=== PATIENT | female | born 1995 | race Caucasian/White ===

== ENCOUNTER 2018-09-25 06:41 | Emergency (ER) | payer BC, MEDICAID ==
[~2018-09-25] VITALS: Ht 157.5 cm; Wt 71.3 kg
[~2018-09-25 06:41] MED LIST: CETI-102 PO; DIPH-423 PO; HYDR-4383 PO; IBUP-1984 PO; NO HOME MEDS; ZOF4T PO
[2018-09-25] MEDS ORDERED: LIDOcaine 1% w/epiNEPHrine 1:200,000 30ml vial IM ONE (07:10)
[2018-09-25 07:15] VITALS: BP 115/57
[2018-09-25] MEDS ORDERED: BACDS PO (07:58)
== END 2018-09-25 08:14 | disposition home or self-care (01) ==
LOC: ER 06:42
DX: L02.31 Cutaneous abscess of buttock (principal); Z79.899 Other long term (current) drug therapy
CPT/HCPCS: 10060; 99283; J3490

== ENCOUNTER 2019-02-10 08:30 | Emergency (ER) | payer BC, MEDICAID ==
[~2019-02-10] VITALS: Ht 157.5 cm; Wt 70.5 kg
[2019-02-10] MEDS ORDERED: metoclopramide 5 mg/ml inj IM ONE ×2 (08:55)
[2019-02-10 09:06] LABS: BASOPHILS # (AUTO) 0.1 X10'3 (0-0.2); BASOPHILS % (AUTO) 0.5 % (0-1); EOSINOPHILS % (AUTO) 0 % (0-6); HEMATOCRIT 41.1 % (35.0-45.0); HEMOGLOBIN 13.8 g/dl (12.0-16.0); LYMPHOCYTES # (AUTO) 0.7 X10'3 (1.1-4.8); LYMPHOCYTES % (AUTO) 5.8 % (21-51); MEAN CORPUSCULAR HEMOGLOBIN 28.5 PG (27.0-31.0); MEAN CORPUSCULAR HGB CONC 33.6 g/dL (33.0-36.5); MONOCYTES # (AUTO) 0.2 X10'3 (0-0.9); MONOCYTES % (AUTO) 1.7 % (2-12); NEUTROPHILS # (AUTO) 10.4 X10'3 (1.8-7.7); PLATELET COUNT 430 X10'3 (140-440); RED BLOOD COUNT 4.83 X10'6 (4.20-5.60); RED CELL DISTRIBUTION WIDTH 13.8 % (11.5-14.5); WHITE BLOOD COUNT 11.4 X10'3 (4.5-11.0)
[2019-02-10 09:21] LABS: ALANINE AMINOTRANSFERASE 61 U/L (12-78); ALBUMIN 4.6 G/DL (3.4-5.0); ALBUMIN/GLOBULIN RATIO 1.1 (1.1-1.5); ALKALINE PHOSPHATASE 63 IU/L (46-116); ANION GAP 12 (8-16); ASPARTATE AMINO TRANSFERASE 20 U/L (10-37); BILIRUBIN,TOTAL 0.6 MG/DL (0.1-1.0); BLOOD UREA NITROGEN 10 MG/DL (7-18); BUN/CREATININE RATIO 14.3 (6.6-38.0); CALCIUM 9.8 MG/DL (8.5-10.1); CHLORIDE 106 MMOL/L (99-107); GLUCOSE 123 MG/DL (70-104); POTASSIUM 4.1 MMOL/L (3.5-5.1); SODIUM 140 MMOL/L (135-145); TOTAL CARBON DIOXIDE 22.2 MMOL/L (24-32); TOTAL PROTEIN 8.7 G/DL (6.4-8.2); eGFR > 90 ML/MIN
[2019-02-10 09:45] LABS: BETA HCG,QUANTITATIVE 30719 mIU/ml
[2019-02-10] MEDS ORDERED: normal saline 1000ml 1,000 ML IV ONE (09:50)
[2019-02-10] MEDS ORDERED: ondansetron/PF 4mg/2ml inj IV ONE ×2 (10:15→11:55)
[2019-02-10 10:47] LABS: URINE HCG POSITIVE (NEG)
[2019-02-10 10:56] LABS: CLARITY,URINE CLOUDY (Clear); GLUCOSE, URINE NEGATIVE (Neg); KETONES,URINE >=80 mg/dl (Neg); LEUKOCYTE ESTERASE ,URINE NEGATIVE (Neg); NITRITES, URINE NEGATIVE (Neg); OCCULT BLOOD,URINE TRACE-LYSED (Neg); PROTEIN,URINE 30 mg/dl (Neg); UROBILINOGEN,URINE 0.2 E.U/dL (0.2-1.0)
[2019-02-10 10:57] LABS: COLOR,URINE DARK YELLOW (Yellow); UA COLLECTION TYPE CLN CATCH MIDSTREAM
[2019-02-10 10:59] LABS: AMORPHOUS URATES 1+; BACTERIA,URINE FEW /HPF (Neg); MUCUS STRANDS MANY /LPF (Neg); RBC,URINE 0-2 /HPF (0-2); SQUAMOUS EPITHELIAL CELL,UR MODERATE /LPF (FEW); WBC,URINE 0-4 /HPF (0-4)
[2019-02-10] MEDS ORDERED: normal saline 1000ML IV soln IVB ONE (11:35)
[2019-02-10] MEDS ORDERED: ONDA4TAB6 PO (13:05)
[2019-02-10 13:13] VITALS: BP 131/70
== END 2019-02-10 13:16 | disposition home or self-care (01) ==
LOC: ER 08:30
DX: O21.9 Vomiting of pregnancy, unspecified (principal); Z79.899 Other long term (current) drug therapy; Z3A.01 Less than 8 weeks gestation of pregnancy
CPT/HCPCS: 36415; 76700; 80053; 81001; 81025; 84702; 85025; 85610; 96361; 96372; 96374; 96376; 99284; J2405; J2765; J7030

== ENCOUNTER 2024-12-27 06:39 | Emergency (ER) | payer BC, MEDICAID ==
[~2024-12-27] VITALS: Ht 157.5 cm; Wt 56.7 kg
[~2024-12-27 06:39] MED LIST changes: -CETI-102 PO; +CETI-90 PO; +ONDA4TAB6 PO
[2024-12-27 06:45] VITALS: BP 130/86; PULSE 109; RESP 18; O2SAT 100
--- NOTE | 2024-12-27 07:17 | RADIOLOGY REPORT ---
Procedure: DI TIB/FIB 2 VWS 12/27/2024 06:54 AM TECHNIQUE: DI TIB/FIB 2 VWS Indication: RIGHT LEG PAIN Comparison: None FINDINGS: Bones: No acute fracture or dislocation. Joint spaces are maintained. Soft tissues: Unremarkable. No radiopaque foreign body. IMPRESSION: 1. No acute osseous abnormality.
--- NOTE | 2024-12-27 09:08 | Physician Documentation ---
History of Present Illness ~ Chief Complaint: Bite-animal Stated Complaint: DOG BITE Time Seen by MD: 08:57 [facility] H[facility] This is a 29-year-old female who presents with multiple dog bites to bilateral arms and right bourne, patient reports he was breaking up a fight between two dogs when she was bit by both of them. Patient reports unknown last tetanus booster. Patient reports both dogs up-to-date on vaccinations. Patient reports that she cleaned wounds after incident. Tetanus within 5 years?: Yes Medication Reconciliation Allergies: Coded Allergies: No Known Allergies (Unverified , 12/27/24) Scheduled Amox Tr/Potassium Clavulanate 875/125 MG (Augmentin 875/125 MG), 1 TAB PO BID Cetirizine HCl (Zyrtec), 1 TAB PO DAILY Diphenhydramine Hcl (Benadryl), 25 MG PO TID Ibuprofen* (Motrin*), 400 MG PO Q6H, (Reported) Scheduled PRN Hydrocodone/Acetaminophen ([place] 5-325 Tablet), 1 TABLET PO TID PRN for pain Ondansetron Hcl (Zofran), 1 TAB PO Q6H PRN for nausea/vomiting Ondansetron ODT* (Zofran ODT*), 4 MG PO Q6H PRN for nausea/vomiting Miscellaneous Medications Home Med List (No Home Medications), (Reported) Past Medical History Past Medical History: No Pertinent History, Extremity Fracture Past Surgical History: no surgical history Smoking Status: Never smoker Alcohol Use: None Drug Use: none Lives with: Mother Lives In: Home Occupation: employed, student Review of Systems ROS Dog bites as stated above in the HPI, otherwise all systems are reviewed and negative. Physical Exam Vital Signs: Temperature: 99.1, Source: Temporal, Heart Rate: 109, Respiratory Rate: 18, BP: 130/86, Pulse Oximetry: 100, Weight: 56.700 Oxygen Flow Rate: 0 Physical Exam VITALS: Reviewed and as above. GENERAL: Alert, nontoxic appearing, no apparent distress. RESPIRATORY: No increased work of breathing, no respiratory distress, speaking in full clear sentences SKIN: Skin of bilateral forearms multiple superficial abrasions and superficial puncture wounds, skin of right calf multiple abrasions, skin of right anterior bourne single superficial puncture wound Progress Results/Orders Results/Orders Completed Orders - MARTÍN,KWADWO W NURSING STAFFING COORDINATOR Tetanus/Pertuss/Diph Acell/Pf (Boostrix (12/27/24 09:10) Ibuprofen Tablet (Motrin Tablet) (12/27/24 09:10) Amox Tr/Potassium Clavulanate (Augmentin (12/27/24 09:15) Vital Signs 12/27/24 12/27/24 06:45 09:35 Temp 99.1 99.1 Pulse 109 Resp 18 B/P (MAP) 130/86 Pulse Ox 100 O2 Flow Rate 0 EKG/XRAY/CT/US/VASC/MRI Bone/Soft Tissue X-Ray (Ext.) : Additional Comment Procedure: DI TIB/FIB 2 VWS 12/27/2024 06:54 AM TECHNIQUE: DI TIB/FIB 2 VWS Indication: RIGHT LEG PAIN Comparison: None FINDINGS: Bones: No acute fracture or dislocation. Joint spaces are maintained. Soft tissues: Unremarkable. No radiopaque foreign body. IMPRESSION: 1. No acute osseous abnormality. Electronically Signed by:JOANNE MATTHEWS MD Date & Time: 12/27/24714 Dictated by: JOANNE MATTHEWS MD Dictation date and time: 12/27/24714 I have reviewed and agree with the radiology report. I have reviewed and interpreted the imaging as: No fracture or dislocation, no radiopaque foreign body Medical Decision Making Findings This 29-year-old female presented with multiple dog bites to her arms and right leg, all bites appear to be superficial, x-ray of right leg did not demonstrate evidence of fracture or dislocation and no retained foreign body. Inspection of the wounds did not demonstrate evidence of retained foreign body. Both dogs involved in the incident for fully vaccinated and known to the patient there for rabies prophylaxis not indicated. Remainder of physical exam was benign. All wounds were thoroughly irrigated prior to arrival. Patient placed on course of oral antibiotics. Patient appropriate for outpatient follow up. Patient provided home care instructions and return to care precautions which she verbalized understanding of. Differential Dx:Considerations: Include: Cellulitis, Contusion, Fracture, Hematoma, Neurovascular injury, Retained foreign body Departure Disposition: 01 HOME / SELF CARE / HOMELESS Impression: Primary Impression: Dog bite Qualified Codes: W54.0XXA - Bitten by dog, initial encounter Condition: Improved Discharge Instructions: Animal Bite, Adult Additional Instructions: Keep the wounds clean dry and covered. The wound on your bourne you should soak with a warm moist compress 2-3 times a day and then clean to aid in drainage of the wound until the wound appears to heal. Please take the antibiotics as prescribed. You may use ibuprofen and Tylenol as needed for pain as directed by [id number] packaging, for the 1st week you may use up to 800 mg of ibuprofen 3 times a day and a 1000 mg of Tylenol 3 times a day. Please take ibuprofen with food to avoid stomach upset. Please follow up with your primary care provider in the next few days wound recheck. Please return to the emergency department for any new or worsening concerning symptoms including but not limited to worsening pain and swelling to the wounds or if you develop a fever over 100.4. Referrals: NO PRIMARY CARE PROVIDER (PCP) Prescriptions Amox Tr/Potassium Clavulanate 875/125 MG (Augmentin 875/125 MG) 875 Mg-125 Mg Tablet 1 TAB PO BID, #14 TAB Prov: KWADWO RESENDIZ 12/27/24 Education Educated: Patient Educated regarding: diagnosis, treatment, prognosis, need for follow up Signature Scribe Signature: No scribe Attestation: The note accurately reflects work and decisions made by me.RAQUEL Layne 12/27/24 22:00 KWADWO RESENDIZ Dec 27, 2024 09:08
[2024-12-27] MEDS ORDERED: AMOX-580 PO (09:09)
[2024-12-27] MEDS: amox tr/potassium clavulanate 875/125mg TAB PO ONE (09:28)
[2024-12-27] MEDS: ibuprofen tablet 400 MG TABLET PO ONE (09:28)
[2024-12-27] MEDS: TETanus/Pertussis (Acell)/Diphther VAC/PF (Tdap-Adult) 0.5ml syringe IMVAC ONE (09:28)
[2024-12-27 09:35] VITALS: TEMP 99.1
== END 2024-12-27 09:37 | disposition home or self-care (01) ==
LOC: ER 06:40
DX: S41.132A Puncture wound without foreign body of left upper arm, initial encounter (principal); S41.131A Puncture wound without foreign body of right upper arm, initial encounter; W54.0XXA Bitten by dog, initial encounter; Y93.89 Activity, other specified; Y92.89 Other specified places as the place of occurrence of the external cause; Y99.8 Other external cause status
CPT/HCPCS: 73590; 90471; 90715; 99283